=== PATIENT | female | born 2000 | race Caucasian/White ===

== ENCOUNTER 2023-06-14 00:30 | Inpatient (IN) ==
[2023-06-14] MEDS ORDERED: OXYTOCIN 30 UNITS/NSS 30 UNITS/500 ML BAG IV PRN ×2 (01:30→16:12)
[2023-06-14] MEDS ORDERED: LIDOCAINE 1% LOCAL 20 ML VIAL INFIL PRN (01:30)
--- NOTE | 2023-06-14 01:36 | History & Physical Report ---
Date of Service June 14, 2023 Assessment & Plan (1) Supervision of normal first : Plan: IUP at 40 6/7 weeks with SPROM and spontaneous onset of labor pitocin augmentation as needed epidural when requested anticipate vaginal Admission and Anticipated Discharge Date Admission Date: June 14, 2023 History of Present Illness Primary Care Provider: Miles Marin MD Patient is a 22 yo female EDC[birth year] who presents with SPROM at 40 6/7 weeks and contractions. GBS-negative Allergies Allergy/AdvReac Type Severity Reaction Status Date / Time SUNSCREEN AdvReac Unknown Reddened Uncoded 06/13/23 09:32 skin Home Medications Medication Instructions Recorded Confirmed Type prenat.vits,theresa,hpt-[id number]-[id number] 1 tab PO DAILY 01/26/23 06/13/23 History ferrous sulfate [Iron (ferrous PO 04/17/23 06/13/23 History sulfate)] nystatin-triamcinolone 100,000 1 applic topical TID 7 days #15 05/15/23 06/13/23 Rx unit/gram-0.1 % topical ointment grams Patient History Medical History Varicella vaccine No pertinent past medical history Surgical History Status post tonsillectomy Hx of knee surgery Family History (Updated 10/28/22 @ 11:00 by Pilar Downey RN) Unknown , of kidney disease. Her last baby at 2 and [age] years old. Kidney disease Kidney stone Mother Anxiety and depression Gestational diabetes mellitus (GDM) affecting Ovarian cancer Denies family history of Breast cancer Colorectal cancer Social History Smoking Status: Never smoker Do You Dip or Chew Tobacco: No; Hx Alcohol Use: No Hx Substance Use: No Preferred Language: Divehi Communication Ability: Effective Sand Conditioner Required: No Beliefs That Will Affect Care: None marital status: Single marital status details: Phuong Sadler (mother) [phone] Current Living Situation: Family Current Living Situation Comment: lives with mother, 1 dog current occupational status: employed 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 Other Information That Helps Us Care for You: No Feels Safe at Home: Yes Assistive Devices: None Review of Systems All systems reviewed & are unremarkable except as noted in HPI & below Physical Exam Constitutional: WD/WN, vitals as above Psychiatric: A+Ox3, euthymic affect Genitourinary: OB Exam Abdomen: + vertex and + regular contractions (Q 3-5 minutes ) Manual OB Exam: + cervical dilation 2 cm (2-3 cm), + cervical effacement 80% and + station -2 OB Exam Monitor Tracing: + external FHT monitor used, + external uterine monitor used, + category I and + normal FHT variability Results & Data Vital Signs (Past 12 Hours) Vital Signs Temp Pulse Resp BP 06/14/23 00:56 97.9 F 18 06/14/23 00:51 103 H 143/70 H Code Status & VTE Plan VTE Prophylaxis Plan VTE Prophylaxis will be ordered: No Coding Level of Care Code None Diagnoses Supervision of normal first Z34.00
[2023-06-14 02:18] LABS: Hematocrit (blood only) 35.4 % (37.0-47.0); Hemoglobin 12.2 g/dl (12.0-16.0); Mean Corpuscular Hemoglobin 33.1 pg (25.0-34.0); Mean Corpuscular Hgb Conc 34.5 g/dL (32.0-36.0); Mean Corpuscular Volume 95.9 fL (80.0-100.0); Mean Platelet Volume 8.9 fL (9.4-12.4); Platelet Count 250 K/uL (130-400); RDW Coefficient of Variation 12.9 % (11.5-14.5); RDW Standard Deviation 45.2 fL (36.4-46.3); Red Blood Count 3.69 M/uL (4.20-5.40); White Blood Count 12.98 K/ul (4.8-10.8)
[2023-06-14] MEDS: LACTATED RINGER'S 1,000 ML IV PRN (03:21)
--- NOTE | 2023-06-14 03:56 | Anesthesiology Consultation ---
Date of Service June 14, 2023 Assessment & Plan Chart Review Chart Review: Acceptable Risk for Labor Epidural Consults Requested none ASA ASA2 Proposed Anesthesia Anesthesia Type: Labor Epidural Risk / Benefits Reviewed With: PT / POA / Parent / Guardian, Accepts Plan and Informed Consent Obtained History Height/Weight Height: 5 ft 4 in Weight: 75.296 kg Allergies Allergy/AdvReac Type Severity Reaction Status Date / Time SUNSCREEN AdvReac Unknown Reddened Uncoded 06/13/23 09:32 skin Medications Home Medications Medication Instructions Recorded Confirmed Last Taken prenat.vits,theresa,lor-[id number]-auchg 1 tab PO DAILY 01/26/23 06/14/23 06/13/23 09:00 ferrous sulfate [Iron (ferrous 1 tab PO DAILY 04/17/23 06/14/23 06/13/23 22:00 sulfate)] nystatin-triamcinolone 100,000 1 applic topical TID 7 days #15 05/15/23 06/14/23 Unknown unit/gram-0.1 % topical ointment grams Active Medications Generic Name Dose Route Start Last Admin Trade Name Freq PRN Reason Stop Dose Admin Lactated Ringer's 1,000 mls @ 125 mls/hr 06/14/23 01:30 06/14/23 03:21 Lr IV 06/16/23 01:29 999 mls/hr .Q8H PRN Administration L&D Protocol Protocol Past Medical History Medical History Varicella vaccine No pertinent past medical history Exercise / Class Metabolic Activity II 4-5 Yardwork/Stairs/Walk up hill Past Family History Family History Unknown , of kidney disease. Her last baby at 2 and [age] years old. Kidney disease Kidney stone Mother Anxiety and depression Gestational diabetes mellitus (GDM) affecting Ovarian cancer Denies family history of Breast cancer Colorectal cancer Past Surgical History Surgical History Status post tonsillectomy Hx of knee surgery Past Anesthesia History No Hx of Anesthesia Complications and No Family Hx of Anesthesia Complications History of PONV No Hx of PONV and No Hx of Motion Sickness Social History Smoking Status: Never smoker Do You Dip or Chew Tobacco: No Hx Alcohol Use: No Hx Substance Use: No Physical Exam Vital Signs Last Vital Signs Temp 97.9 F 06/14/23 03:30 Pulse 90 06/14/23 03:50 Resp 20 06/14/23 03:30 BP 124/78 06/14/23 03:45 Pulse Ox 100 06/14/23 03:50 ENMT Mouth: no dentition abnormality Thyromental Distance: > or= 3.5 Finger Breadths Mallampati Class: II Neck normal visual inspection Respiratory normal respiratory effort Auscultation: lungs clear to auscultation bilaterally Cardiovascular Rate/Rhythm: regular rate and regular rhythm Testing Laboratory Results 06/14/23 01:52
[2023-06-14] MEDS: fentANYL 2 MCG/ML BUPIVacaine 0.125%-NSS 100ML BAG ONE (04:13)
[2023-06-14] MEDS: SODIUM CHLORIDE 0.9% PF INJ 10 ML VIAL ONE (04:14)
[2023-06-14] MEDS ORDERED: NALBUPHINE HCL 5 MG in SYRINGE 0 ML IV PRN (04:14)
[2023-06-14] MEDS ORDERED: SODIUM CHLORIDE 0.9% PF INJ 10 ML VIAL EPI PRN (04:14)
[2023-06-14] MEDS ORDERED: LIDOCAINE 2% MPF LOCAL 5 ML VIAL EPI PRN (04:14)
[2023-06-14] MEDS: BUPIVACAINE 0.25% PF 30 ML VIAL ONE (04:14)
[2023-06-14] MEDS ORDERED: NALOXONE HCL 0.4 MG/1 ML VIAL/CARP IV PRN (04:14)
[2023-06-14] MEDS: LIDOCAINE 2%/EPINEPHRINE 1:200,000 20 ML PF ONE (04:14)
[2023-06-14] MEDS ORDERED: ePHEDrine sulfate 50 MG/ML AMP IV PRN (04:14)
[2023-06-14] MEDS ORDERED: BUPIVACAINE 0.25% PF 30 ML VIAL EPI PRN (04:14)
[2023-06-14] MEDS ORDERED: fentaNYL citrate PF 100 MCG/2 ML VIAL EPI PRN (04:14)
[2023-06-14] MEDS: fentaNYL citrate PF 100 MCG/2 ML VIAL ONE (04:14)
[2023-06-14] MEDS ORDERED: ROPIVACAINE 0.5% PF 5 MG/ML 20 ML VIAL EPI PRN (04:14)
[2023-06-14] MEDS ORDERED: NALOXONE HCL 1 MG in SODIUM CHLORIDE 0.9% 1,000 ML IV PRN (04:14)
[2023-06-14] MEDS ORDERED: diphenhydrAMINE 50 MG/ML VIAL IV PRN (04:14)
[2023-06-14] MEDS: ePHEDrine sulfate 50 MG/ML AMP ONE (04:15)
[2023-06-14] MEDS: BUTORPHANOL TARTRATE 2 MG/ML VIAL IV ONE (04:36)
[2023-06-14] MEDS: LIDOCAINE 2%/EPINEPHRINE 1:200,000 20 ML PF EPI STA (04:37)
[2023-06-14] MEDS: SODIUM CHLORIDE 0.9% PF INJ 10 ML VIAL EPI STA (04:37)
[2023-06-14] MEDS: fentaNYL citrate PF 100 MCG/2 ML VIAL EPI STA (04:37)
[2023-06-14] MEDS: BUPIVACAINE 0.25% PF 30 ML VIAL EPI STA (04:37)
[2023-06-14] MEDS: OXYTOCIN 30 UNITS/NSS 30 UNITS/500 ML BAG IV PRN (08:51)
[2023-06-14] MEDS: fentANYL 2 MCG/ML BUPIVacaine 0.125%-NSS 100ML BAG EPI PRN (09:41)
[2023-06-14] MEDS: ONDANSETRON INJ 2 MG/ML 2 ML VIAL IV PRN (12:18)
--- NOTE | 2023-06-14 16:06 | Delivery Summary ---
Vaginal Delivery Summary Date of Service June 14, 2023 Vaginal Delivery Summary and 2nd Degree LAC Patient had been scheduled for induction but arrived in labor membranes were ruptured and requested epidural progressed to fully dilated she was able to push successfully delivering a baby in occiput anterior position fluid was clear after delivery of the head there was no nuchal cord gentle traction and baby easy delivery no excessive forced used live vigorous male Cord clamped cord blood obtained placenta removed with traction IV Pitocin you used to improve uterine tone second-degree tear repaired with 3-0 Vicryl sponge and isthmic counts were correct QBL 419 rectal exam they were negative for sutures or defects [facility] Vaginal Delivery Charge Delivery Type Details: and 2nd Degree LAC
[2023-06-14] MEDS ORDERED: HYDROCORTISONE ACETATE 25 MG SUPP PR PRN (16:12)
[2023-06-14] MEDS ORDERED: ACETAMINOPHEN 325 MG TAB PO PRN (16:12)
[2023-06-14] MEDS ORDERED: bisacodyL 10 MG SUPP PR PRN (16:12)
[2023-06-14] MEDS: DIPHTHER/TETAN/PERTUS Vaccine (Tdap, Adol/Adult) 0.5mL IM ONE (16:43)
--- NOTE | 2023-06-14 17:03 | Anesthesia Procedure Note ---
Date of Service June 14, 2023 Anesthesia Post Epidural Note Vital Signs Vital Signs: Temp Pulse Resp BP Pulse Ox 98.2 F 113 H 16 108/60 99 06/14/23 13:00 06/14/23 16:49 06/14/23 14:04 06/14/23 16:49 06/14/23 15:51 Pain Intensity Bilateral Abdomen: Pain Intensity: 0 Notes Mental Status: alert / awake / arousable and participated in evaluation Nausea / Vomiting: adequately controlled Pain: adequately controlled Airway Patency, RR, SpO2: stable & adequate BP & HR: stable & adequate Hydration State: stable & adequate Neuraxial Anesthesia: was administered and sensory block is resolving Anesthetic Complications: no major complications apparent and Pt Satisfied with anesthetic care Epidural: Removed without complications and With tip intact
[2023-06-14] MEDS: IBUPROFEN 600 MG TAB PO PRN (19:19)
[2023-06-14] MEDS: DOCUSATE SODIUM 100 MG CAP PO SCH (20:42)
[2023-06-14] MEDS: BENZOCAINE 20% SPRY 85 APPLN/85 GM CAN EXT PRN (23:45)
[2023-06-15 06:15] LABS: Hematocrit (blood only) 27.7 % (37.0-47.0); Hemoglobin 9.2 g/dl (12.0-16.0); Mean Corpuscular Hemoglobin 32.4 pg (25.0-34.0); Mean Corpuscular Hgb Conc 33.2 g/dL (32.0-36.0); Mean Corpuscular Volume 97.5 fL (80.0-100.0); Mean Platelet Volume 8.7 fL (9.4-12.4); Platelet Count 176 K/uL (130-400); RDW Coefficient of Variation 12.9 % (11.5-14.5); Red Blood Count 2.84 M/uL (4.20-5.40)
--- NOTE | 2023-06-15 06:33 | Obstetrical Progress Note ---
Date of Service June 15, 2023 Assessment & Plan (1) care and examination: Plan: Doing well Encourage ambulation Pain control Anticipate dc tomorrow Admission and Anticipated Discharge Date Admission Date: June 14, 2023 Supervising Physician Co-Signing Physician Notes Resident Physician Supervision Note: I interviewed and examined the patient. Discussed with Dr. Galan and agree with findings and plan as documented in the note. Any exceptions or clarifications are listed here: [None] Documented By: Naga Gonzalez MD, FACOG Subjective 22 yo post day 1 s/p Ambulation: ambulating normally Voiding: no voiding problems Passing Gas:: Yes Diet Tolerance:: regular diet Lochia:: Small Feeding Type:: breast feeding Current Pain Level: minimal Resting comfortably this AM in NAD. Denies GARZA, CP, SOB, N/V/D, LE pain/swelling. Review of Systems Review of Systems: reviewed, per HPI Physical Exam Physical Exam: General: patient resting comfortably, NAD, non-toxic in appearance Skin: warm, dry, intact HEENT: NC/AT, anicteric sclera, conjunctiva without injection, moist mucus membranes. Heart: +S1/S2, regular, no m/r/g Lungs: equal air entry bilaterally, no rales/rhonchi/wheezes Abd: +BS, soft, NT/ND, uterine fundus firm at umbilicus Ext: warm, no clubbing/cyanosis or edema, Yumiko's neg. Neuro: nonfocal, no facial droop, moving all extremities on command. Results & Data Vital Signs (Past 12 Hours) Vital Signs Temp Pulse Pulse Resp BP BP Pulse Ox 06/15/23 03:10 36.7 C 93 H 18 117/74 99 06/15/23 00:00 36.8 C 84 17 118/73 98 06/14/23 20:06 37.1 C 113 H 18 112/71 99 06/14/23 19:07 122 H 06/14/23 19:07 113/60 06/14/23 19:06 129 H 06/14/23 19:06 140/62 06/14/23 19:00 36.9 C 18 06/14/23 18:49 123 H 06/14/23 18:49 123/56 L 06/14/23 18:35 124/66 O2 Del Method 06/15/23 03:10 Room Air 06/15/23 00:00 Room Air 06/14/23 20:06 Room Air 06/14/23 19:07 06/14/23 19:07 06/14/23 19:06 06/14/23 19:06 06/14/23 19:00 06/14/23 18:49 06/14/23 18:49 06/14/23 18:35 Resident Activity Tracking Resident Involvement: Resident Care Provided Care Provided: Adult Hospital Medicine
[2023-06-15] MEDS: PRENATAL VITAMIN 1 TAB PO SCH (08:32)
[2023-06-15] MEDS: bisacodyL 5 MG TABEC PO SCH (19:20)
[2023-06-16 00:21] VITALS: RESP 18
--- NOTE | 2023-06-16 06:01 | Obstetrical Progress Note ---
Date of Service June 16, 2023 Assessment & Plan (1) care and examination: Plan: Doing well dc today continue routine post care Admission and Anticipated Discharge Date Admission Date: June 14, 2023 Supervising Physician Co-Signing Physician Notes Resident Physician Supervision Note: I was present with Dr. Galan during the history and exam. I discussed the case with the resident and agree with the findings and plan as documented in the note. Any exceptions or clarifications are listed here: PPD#2 doing well. DC home. Instructions reviewed. Documented By: Marleen Sousa, Subjective 22 yo post day 1 s/p Ambulation: ambulating normally Voiding: no voiding problems Passing Gas:: Yes Diet Tolerance:: regular diet Lochia:: Small Feeding Type:: breast feeding Current Pain Level: minimal Resting comfortably this AM in NAD. Denies GARZA, CP, SOB, N/V/D, LE pain/swelling. Review of Systems Review of Systems: reviewed, per HPI Physical Exam Physical Exam: General: patient resting comfortably, NAD, non-toxic in appearance Skin: warm, dry, intact HEENT: NC/AT, anicteric sclera, conjunctiva without injection, moist mucus membranes. Heart: +S1/S2, regular, no m/r/g Lungs: equal air entry bilaterally, no rales/rhonchi/wheezes Abd: +BS, soft, NT/ND, uterine fundus firm at umbilicus Ext: warm, no clubbing/cyanosis or edema, Yumiko's neg. Neuro: nonfocal, no facial droop, moving all extremities on command. Results & Data Vital Signs (Past 12 Hours) Vital Signs Temp Pulse Resp BP Pulse Ox O2 Del Method 06/15/23 23:20 36.7 C 96 H 18 106/68 98 Room Air 06/15/23 19:25 36.5 C 100 H 16 106/67 100 Room Air Resident Activity Tracking Resident Involvement: Resident Care Provided Care Provided: Adult Hospital Medicine
[2023-06-16 07:05] LABS: Hematocrit (blood only) 28.4 % (37.0-47.0); Hemoglobin 9.4 g/dl (12.0-16.0)
[2023-06-16 08:17] VITALS: BP 129/61; PULSE 87; TEMP 97.3; O2SAT 99
== END 2023-06-16 11:15 | disposition home or self-care (01) | DRG 807 ==
LOC: 4S1 00:30 → 4E2 19:45
DX: O70.1 Second degree perineal laceration during delivery; Z37.0 Single live birth; Z3A.40 40 weeks gestation of pregnancy; O48.0 Post-term pregnancy; O42.02 Full-term premature rupture of membranes, onset of labor within 24 hours of rupture